=== PATIENT | male | born 2000 ===

== ENCOUNTER 2025-01-17 06:10 | Day surgery (SDC) | payer OTHER, SELFPAY ==
[2025-01-08 09:07] LABS: Hematocrit 43.6 % (39.0-52.0); Hemoglobin 14.4 g/dL (13.0-18.0); Mean Corp Hgb Conc. 33.0 g/dL (33.0-37.0); Mean Corpuscular Volume 86.0 fL (80.0-94.0); Platelet Count 209 10^3/uL (130-400); Red Cell Dist. Width 12.5 % (11.5-14.5)
[2025-01-08 09:36] LABS: Blood Urea Nitrogen 15 mg/dl (9-20); Calcium 9.9 mg/dl (8.4-10.2); Carbon Dioxide 29 mmol/L (22-30); Chloride 104 mmol/L (98-107); Glucose 94 mg/dl (70-99); Potassium 4.5 mmol/L (3.5-5.1); Sodium 140 mmol/L (135-145); eGFR > 60.00
[2025-01-08 14:08] VITALS: BMI 33.9
[2025-01-17] VITALS (9 sets, daily range): BP systolic 122–154; BP diastolic 69–89; BMI 34.0; BMI 29.0
[2025-01-17] MEDS: NORMOSOL-R/PLASMALYTE-A 1000 IV (13:43)
[2025-01-17] MEDS: TYLENOL 1000 MG PO (13:43)
--- NOTE | 2025-01-17 19:28 | W.IMMPOSTOP ---
Surgical Immed Post Op Note
-
Primary Surgeon: Fernando Reid MD
Assisting Surgeon: Nicanor oPwell PA-C
Pre-op Diagnosis: right knee ACL tear, ramp lesion
Post-op Diagnosis: right knee ACL tear
Procedure Performed: right anterior cruciate ligament reconstruction with patella tendon autograft
Anesthesia Type: general
Specimen / Cultures: none
Estimated Blood Loss: 100mL
Complications: none apparent
Operative Findings: stable medial meniscus
Operative dictation #: [id number]
[2025-01-17] MEDS: ZOFRAN 4 MG IV (20:06)
[2025-01-17] MEDS: TYLENOL 650 MG PO (20:42)
== END 2025-01-17 23:01 | disposition home or self-care (01) ==
LOC: SDS 06:10
PROVIDERS: ATTENDING PHYSICIAN Student in an Organized Health Care Education/Training Program; FAMILY PHYSICIAN Family Medicine
DX: S83.511A Sprain of anterior cruciate ligament of right knee, initial encounter (principal); X50.1XXA Overexertion from prolonged static or awkward postures, initial encounter
CPT/HCPCS: 29888; 36415; 73560; 80048; 85027; C1713